=== PATIENT | male | born 2000 ===

== ENCOUNTER 2024-08-05 19:28 | Emergency (ER) | payer OTHER ==
[~2024-08-05] VITALS: Ht 177.8 cm; Wt 77.3 kg
[2024-08-05 19:30] VITALS: TEMP 98.1
[2024-08-05] MEDS ORDERED: OMEG100033 PO (19:31)
[2024-08-05] MEDS ORDERED: CYAN-119 PO (19:31)
[2024-08-05] MEDS: MethylPREDNISolone SOD SUCC 125 MG/2 ML VIAL IVP ONE (20:40)
[2024-08-05] MEDS: DiphenhydrAMINE HCL 50 MG/ML VIAL IVP ONE (20:40)
[2024-08-05 21:21] VITALS: BP 123/78; PULSE 71; RESP 18; O2SAT 96
[2024-08-05] MEDS ORDERED: PRED-554 PO (22:57)
[2024-08-05] MEDS ORDERED: DIPH-1243 PO (22:57)
== END 2024-08-05 23:15 | disposition home or self-care (01) ==
LOC: EDBD 19:28 → EMS 19:28
DX: T78.1XXA Other adverse food reactions, not elsewhere classified, initial encounter (principal); R22.0 Localized swelling, mass and lump, head; X58.XXXA Exposure to other specified factors, initial encounter
CPT/HCPCS: 99284; 96374; 96375; J2919; J1200